=== PATIENT | male | born 1995 | race Hispanic/Latino ===

== ENCOUNTER 2021-01-24 10:42 | Emergency (ER) | payer BC, OTHER ==
[2021-01-24] MEDS ORDERED: Morphine 4 MG/ML VIAL ONE ×3 (11:44→17:41)
[2021-01-24] MEDS ORDERED: Lorazepam 2 MG/ML VIAL ONE (11:45)
[2021-01-24] MEDS ORDERED: Ondansetron PF 4 MG/2 ML Vial ONE (11:45)
[2021-01-24 11:59] LABS: Hemoglobin 14.3 g/dL (13.5-17.5); Mean Corpuscular HGB CONC 33.4 g/dL (32.0-36.0); Mean Corpuscular Volume 86.8 fl (81.2-95.1); Mean Platelet Volume 9.8 fl (7.4-10.4); Platelet Count 330 10x3/uL (150-450); Red Blood Cell (RBC) Count 4.93 10x6/uL (4.32-5.72); White Blood Cell (WBC) Count 17.8 10x3/uL (3.5-10.5)
[2021-01-24 12:05] LABS: ALT (SGPT) 24 U/L (8-55); AST (SGOT) 21 U/L (5-34); Albumin 4.4 g/dL (3.5-5.0); Alkaline Phosphatase 75 U/L (40-110); Anion Gap 18 mmol/L (10-20); BUN (Urea Nitrogen) 20 mg/dL (8.9-20.6); Bilirubin, Total 0.2 mg/dL (0.2-1.2); Calc. Creatinine Clearance 0 mL/min (70-130); Calcium 9.5 mg/dL (7.8-10.44); Carbon Dioxide 21 mmol/L (22-29); Chloride 102 mmol/L (98-107); Globulin 3.4 g/dL (2.4-3.5); Glucose 157 mg/dL (70-105); Potassium 3.7 mmol/L (3.5-5.1); Protein, Total 7.8 g/dL (6.0-8.3); Sodium 137 mmol/L (136-145)
[2021-01-24 12:22] LABS: MDiff Complete? YES
[2021-01-24 12:26] LABS: Eosinophils 13 % (0-10); Neutrophil 40 % (42-75)
[2021-01-24 12:27] LABS: Lymphocytes 43 % (21-51); Monocytes 4 % (0-10)
[2021-01-24 12:28] LABS: Platelet Morphology Comment Appears Adequate
[2021-01-24 12:29] LABS: RBC Morphology Normal
== END 2021-01-24 18:01 | disposition short-term general hospital (02) ==
LOC: CSHERS 10:42
DX: M84.452A Pathological fracture, left femur, initial encounter for fracture (principal); R56.9 Unspecified convulsions; Z79.899 Other long term (current) drug therapy
CPT/HCPCS: 80053; 85025; J2060; J2270; J2405